=== PATIENT | female | born 1980 | race Caucasian/White ===

== ENCOUNTER 2017-02-18 13:03 | Emergency (ER) | payer OTHER ==
[2017-02-18] MEDS ORDERED: HYDROmorphone HCL INJ 2 MG/ML VIAL IV ONE ×2 (14:14→15:46)
[2017-02-18] MEDS ORDERED: SODIUM CHLORIDE 0.9% 1000ML 1,000 ML IVS ONE (14:14)
[2017-02-18] MEDS ORDERED: ONDANSETRON INJ 4 MG/2 ML VIAL IV ONE (14:14)
[2017-02-18 14:18] VITALS: TEMP 98.5
--- NOTE | 2017-02-18 14:18 | ED.PDOC ---
History of Present Illness - General Chief Complaint: Abdominal Pain Stated Complaint: abdominal pain Time Seen by Provider: 02/18/17 14:05 Information Source: patient, RN notes reviewed, Vital Signs reviewed Exam Limitations: no limitations - History of Present Illness Initial Comments: Patient presents to the ER with LUQ pain. Reports she will periodically have flare ups of pain due to splenomegally. Usually able to control them with home pain medications. This time the medication is not working. + nausea, no vomiting or change in bowel habits. She also has fibromyalgia and is having a lot of pain in her shoulders and R hand. She is followed by an Oncologist in [place] for her splenomegally. This flare up started 2 days ago. Took her pain medication @ 02:30 this morning w/o relief. Abdominal Pain Onset Location: LUQ Pain Radiation: back Quality: severe, aching, dull Timing/Duration: days - 3 Improving Factors: nothing Worsening Factors: nothing Associated Symptoms: back pain, nausea/vomiting Review of Systems - Review of Systems Constitutional: States: no symptoms reported. Denies: chills, fever, malaise Respiratory: States: no symptoms reported Cardiology: States: no symptoms reported Gastrointestinal/Abdominal: States: see HPI, abdominal pain, nausea. Denies: constipation, diarrhea, vomiting Musculoskeletal: States: see HPI, back pain, joint pain, joint swelling, muscle pain, muscle stiffness Skin: States: no symptoms reported Neurological: States: no symptoms reported All other Systems: No Change from Baseline Past Medical History (General) - Patient Medical History Hx Seizures: Yes - Last seizure 1996. Hx Stroke: No Hx Asthma: No Hx of COPD: No Hx Cardiac Disorders: No Hx Congestive Heart Failure: No Hx Hypertension: Yes Hx Diabetes: Yes Hx MRSA: No Family Medical History - Family History Mother Family History: No Known Physical Exam - Physical Exam General Appearance: Alert, No apparent distress, Obese, Well Developed, Well Groomed, Well Hydrated, Well Nourished, Other - uncomfortable Neck: supple Respiratory: chest non-tender, lungs clear, normal breath sounds, no respiratory distress, no accessory muscle use Cardiovascular/Chest: regular rate, rhythm, no gallop, no murmur Gastrointestinal/Abdominal: normal bowel sounds, soft, no pulsatile mass, tenderness - LUQ, spleenomegaly Extremity: normal inspection - except swelling of MCP joint of right hand Neurologic: alert, normal mood/affect, oriented x 3 Skin Exam: other - Flushed Progress - Progress Progress: 02/18/17 15:25 Pain improving after Dilaudid 1mg IV - now sharp, stabbing pains. Appears more comfortable, laying back in bed. Labs are unremarkable. Discussed treatment plan. She would like to get her pain controlled and then follow up with her Oncologist. 02/18/17 16:32 Pain significantly improved after 2nd dose of Dilaudid. Will d/c home and have her follow up w/ her Oncologist. - Results/Orders Results/Orders: Laboratory Tests 02/18/17 02/18/17 14:30 14:30 WBC 7.0 RBC 4.84 Hgb 14.9 Hct 41.9 MCV 86.5 MCH 30.7 MCHC 35.5 RDW 12.6 Plt Count 180 MPV 7.5 Absolute Neuts (auto) 4.60 Absolute Lymphs (auto) 2.00 Absolute Monos (auto) 0.30 Absolute Eos (auto) 0.20 Absolute Basos (auto) 0.00 Neutrophils % 65.6 Lymphocytes % 28.1 Monocytes % 3.6 Eosinophils % 2.2 Basophils % 0.5 Sodium 134 L Potassium 4.4 Chloride 97 L Carbon Dioxide 28 Anion Gap 13.4 BUN 8 Creatinine 0.55 L BUN/Creatinine Ratio 14.5 Random Glucose 329 H Serum Osmolality 279.4 Calcium 9.3 Total Bilirubin 2.0 H AST 18 ALT 26 Alkaline Phosphatase 87 Serum Total Protein 7.2 Albumin 4.2 Globulin 3.0 Albumin/Globulin Ratio 1.4 Amylase 26 L Lipase 27 Departure - Departure Clinical Impression: History of splenomegaly, Abdominal pain, acute, left upper quadrant Time of Disposition: 16:33 Disposition: Discharge to Home or Self Care Condition: Fair Departure Forms: ED Discharge - Pt. Copy, Patient Portal Self Enrollment Instructions: DI for Abdominal Pain-Adult Diet: resume usual diet Activity: increase activity as tolerated Referrals: TAWANNA MONTILLA [Primary Care Provider] - 1-5 Days Home Medications: Ambulatory Orders Gabapentin [Neurontin] 300 mg PO Q6HRS PRN 12/15/13 Human Insulin Aspart [Novolog] 15 unit SUBCU BID 12/15/13 Insulin Detemir [Levemir] 55 unit SUBCU BEDTIME 12/15/13 Metformin HCl 500 mg PO BID 12/15/13 Escitalopram Oxalate [Lexapro] 20 mg PO BEDTIME 05/29/14
[2017-02-18 16:50] VITALS: BP 129/72; O2SAT 95
== END 2017-02-18 16:50 | disposition home or self-care (01) ==
LOC: ER 13:03
DX: R10.12 Left upper quadrant pain (principal); R16.1 Splenomegaly, not elsewhere classified; M79.7 Fibromyalgia; I10 Essential (primary) hypertension; E11.9 Type 2 diabetes mellitus without complications; Z79.899 Other long term (current) drug therapy
CPT/HCPCS: 36415; 80053; 82150; 83690; 85025; J1170; J2405; J7030

== ENCOUNTER → 2017-03-27 | Outpatient (CLI) | payer OTHER ==
--- NOTE | 2017-03-27 21:03 | MRI ---
EXAM DESCRIPTION: Cervical Spine CLINICAL HISTORY: NECK PAIN. COMPARISON: None Available. TECHNIQUE: Multiplanar multisequence MR imaging of the cervical spine including the administration of intravenous contrast. FINDINGS: There is slight reversal of the normal lordotic curvature of the lower cervical spine, with mild multilevel disc desiccation. There is no significant central canal or neuroforaminal stenosis. Vertebral body height is preserved without evidence of acute fracture or subluxation. There is no disc herniation or canal stenosis. Spinal cord is of normal contour and signal. Prevertebral soft tissues are within normal limits. IMPRESSION: No acute abnormalities. Mild degenerative changes. Electronically signed by: Donnie Greene 03/27/2017 9:01 PM [employer]
== END | disposition home or self-care (01) ==
LOC: MRI 14:23
PROVIDERS: ATTEND Surgery
DX: M47.892 Other spondylosis, cervical region (principal)

== ENCOUNTER → 2017-10-08 | Outpatient (CLI) | payer OTHER | LOC: LAB.O 09:25 | PROVIDERS: ATTEND Emergency Medicine | DX: Z01.818 Encounter for other preprocedural examination (principal) ==

== ENCOUNTER 2018-05-01 11:54 | Emergency (ER) | payer OTHER ==
[2018-05-01] MEDS ORDERED: FLUCONAZOLE 100 MG TAB PO ONE (12:19)
--- NOTE | 2018-05-01 12:22 | ED.PDOC ---
History of Present Illness - General Chief Complaint: Skin/Abrasion/Tear Stated Complaint: Vaginal skin irritation/rash Time Seen by Provider: 05/01/18 11:59 Source: patient Exam Limitations: no limitations - History of Present Illness Initial Comments: the patient is a 37-year-old female presenting to the emergency room secondary to a painful lesion at approximately 1:00 at the introitus. She reports that she has been having pain there for one week. She is not sexually active and has not been for a couple of years apparently. She did have a Pap smear not too long ago that was apparently okay. No significant discharge. On examination pain appears to be located at the base of a genital wart at that location. There does not appear to be any diffuse rash. No real significant discharge. No other lesions. There are approximately 3 warts in a cluster. Timing/Duration: week Severity: moderate Location: none Improving Factors: nothing Worsening Factors: nothing Allergies/Adverse Reactions: Allergies NO KNOWN ALLERGY Allergy (Verified 05/01/18 11:59) Home Medications: Ambulatory Orders Gabapentin [Neurontin] 300 mg PO Q6HRS PRN 12/15/13 Human Insulin Aspart [Novolog] 15 unit SUBCU BID 12/15/13 Insulin Detemir [Levemir] 55 unit SUBCU BEDTIME 12/15/13 Metformin HCl 500 mg PO BID 12/15/13 Escitalopram Oxalate [Lexapro] 20 mg PO BEDTIME 05/29/14 Review of Systems - Review of Systems Constitutional: States: no symptoms reported EENTM: States: no symptoms reported Respiratory: States: no symptoms reported Cardiology: States: no symptoms reported Gastrointestinal/Abdominal: States: no symptoms reported Genitourinary: States: see HPI Musculoskeletal: States: no symptoms reported Skin: States: no symptoms reported Neurological: States: no symptoms reported All other Systems: No Change from Baseline Past Medical History (General) - Patient Medical History Hx Seizures: Yes - Last seizure 1996. Hx Stroke: No Hx Asthma: No Hx of COPD: No Hx Cardiac Disorders: No Hx Congestive Heart Failure: No Hx Pacemaker: No Hx Hypertension: Yes Hx Diabetes: Yes - Has neuropathy Hx MRSA: No Surgical History: appendectomy, cholecystectomy, Hysterectomy, other - Vaccination History Hx Influenza Vaccination: No Hx Pneumococcal Vaccination: No - Social History Hx Tobacco Use: No Hx Alcohol Use: No Family Medical History - Family History Mother Family History: No Known Physical Exam - Physical Exam General Appearance: Alert, Comfortable, No apparent distress Eyes, Ears, Nose, Throat Exam: PERRL/EOMI Neck: full range of motion Cardiovascular/Chest: normal peripheral pulses, no edema Respiratory: no accessory muscle use Gastrointestinal/Abdominal: soft - obese Extremity: non-tender, normal inspection, no pedal edema, normal capillary refill 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 She was given 1 dose of Diflucan in case a very mild yeast infection is worsening irritation. She continues very thin layer of Vaseline around the area to prevent moisture from keeping it irritated. Once the inflammation has gone down then she can see her primary care doctor or [employer] doctor to have these removed, to prevent future irritation. ER warnings were given. Departure - Departure Clinical Impression: Warts, genital Disposition: Discharge to Home or Self Care Condition: Fair Departure Forms: ED Discharge - Pt. Copy, Patient Portal Self Enrollment Instructions: Anogenital Warts (DC) Diet: regular diet Activity: increase activity as tolerated Referrals: TAWANNA MONTILLA [Primary Care Provider] - 1-2 Weeks Home Medications: Ambulatory Orders Gabapentin [Neurontin] 300 mg PO Q6HRS PRN 12/15/13 Human Insulin Aspart [Novolog] 15 unit SUBCU BID 12/15/13 Insulin Detemir [Levemir] 55 unit SUBCU BEDTIME 12/15/13 Metformin HCl 500 mg PO BID 12/15/13 Escitalopram Oxalate [Lexapro] 20 mg PO BEDTIME 05/29/14 Additional Instructions: the patient is a 37-year-old female that appears to be having pain due to irritation at the base of one of her genital warts. She was given 1 dose of Diflucan in case a very mild yeast infection is worsening irritation. She continues very thin layer of Vaseline around the area to prevent moisture from keeping it irritated. Once the inflammation has gone down then she can see her primary care doctor or [employer] doctor to have these removed, to prevent future irritation. ER warnings were given.
[2018-05-01 13:35] VITALS: BP 100/79; TEMP 99.7; O2SAT 99
== END 2018-05-01 12:33 | disposition home or self-care (01) ==
LOC: ER 11:54
DX: A63.0 Anogenital (venereal) warts (principal); I10 Essential (primary) hypertension; E11.40 Type 2 diabetes mellitus with diabetic neuropathy, unspecified; Z79.4 Long term (current) use of insulin; Z79.899 Other long term (current) drug therapy

== ENCOUNTER 2020-03-11 04:17 | Emergency (ER) | payer OTHER, SELFPAY ==
[2020-03-11] MEDS ORDERED: KETOROLAC TROMETHAMINE INJ 30 MG/ML VIAL IV ONE (04:52)
[2020-03-11] MEDS ORDERED: ONDANSETRON INJ 4 MG/2 ML VIAL IV ONE (04:53)
--- NOTE | 2020-03-11 04:56 | ED.PDOC ---
History of Present Illness - General Chief Complaint: Abdominal Pain Stated Complaint: my stomach hurts Time Seen by Provider: 03/11/20 04:48 Information Source: patient, RN notes reviewed, Vital Signs reviewed Exam Limitations: no limitations Additional Information: The patient is a 39-year-old female that presents to the emergency department with complaints of left upper quadrant pain. States that she has had some nausea and vomiting. Onset of symptoms was 3 days ago. She denies any diarrhea denies any constipation. States that she has had pancreatitis in the past and she is worried she might have a recurrence because she presented with similar symptoms. - History of Present Illness Abdominal Pain Onset Location: LUQ Pain Radiation: no radiation Quality: moderate Timing/Duration: days - 3 Improving Factors: nothing Worsening Factors: nothing Associated Symptoms: nausea/vomiting Review of Systems - Review of Systems Constitutional: States: see HPI. Denies: chills, fever EENTM: Denies: blurred vision, tearing, ear pain, ear discharge, nose pain Respiratory: Denies: cough, orthopnea, stridor Cardiology: Denies: chest pain, palpitations, syncope Gastrointestinal/Abdominal: States: abdominal pain, nausea, vomiting. Denies: constipation, diarrhea Musculoskeletal: Denies: joint pain, joint swelling, muscle pain, muscle stiffness Skin: Denies: change in color, dryness, lesions, rash, other Neurological: Denies: depressed, emotional problems, headache, numbness, paresthesia, pre-existing deficit, seizure, tremors Endocrine: Denies: flushing, intolerance to cold, intolerance to heat Hematologic/Lymphatic: Denies: blood clots, easy bleeding All other Systems: Reviewed and Negative Past Medical History (General) - Patient Medical History Hx Seizures: Yes - Last seizure 1996. Hx Stroke: No Hx Asthma: No Hx of COPD: No Hx Cardiac Disorders: No Hx Congestive Heart Failure: No Hx Pacemaker: No Hx Hypertension: Yes Hx Diabetes: Yes - Has neuropathy Hx MRSA: No - Vaccination History Hx Tetanus, Diphtheria Vaccination: No Hx Influenza Vaccination: No Hx Pneumococcal Vaccination: No Immunizations Up to Date: No - Social History Hx Tobacco Use: No Hx Alcohol Use: No Hx Substance Use: No Hx Substance Use Treatment: No Hx Depression: No Family Medical History - Family History Mother Family History: No Known Physical Exam - Physical Exam General Appearance: Alert, Comfortable Eyes, Ears, Nose, Throat Exam: normal ENT inspection, TMs normal, pharynx normal, other - dry mucous membranes Neck: non-tender, full range of motion, supple Respiratory: chest non-tender, lungs clear, normal breath sounds, no respiratory distress, no accessory muscle use Cardiovascular/Chest: normal peripheral pulses, regular rate, rhythm, no edema, no gallop, no JVD Peripheral Pulses: No deficit Gastrointestinal/Abdominal: soft, no organomegaly, tenderness - luq , no guarding Back Exam: normal inspection, no CVA tenderness, no vertebral tenderness Extremity: normal range of motion, non-tender, normal inspection Neurologic: no motor/sensory deficits, alert, oriented x 3 Skin Exam: normal color, warm/dry Lymphatic: no adenopathy Progress - Progress Progress: 03/11/20 05:30 Patient is a 39-year-old female presents emergency department complaints of left upper quadrant pain. On examination she has left upper quadrant pain. The patient is concerned that she might have pancreatitis especially to the ER lipase . Physical shows dehydration. She is treated with IV fluids Zofran and Toradol in the emergency department she continues to complain of pain to milligrams of morphine administered she reports improvement in his symptoms. That she came to the ER who patient get a CT scan, i explained to the patient that the CT scan is down and I am okay with transferring her to an outside facility, Closest one [place] for her to get a CT done. The patient states that she prefers to be discharged home that she will follow-up with her primary care physician tomorrow or return to our facility later on today for in the CT is improving functionally.She reports significant improvement in her symptoms after morphine 03/11/20 05:38 Departure - Departure Clinical Impression: Dehydration, Abdominal pain, LUQ abdominal pain, UTI (urinary tract infection) Clinical Impression: (Ruled Out): KENIA (acute kidney injury) Disposition: Discharge to Home or Self Care Condition: Fair Departure Forms: ED Discharge - Pt. Copy, Patient Portal Self Enrollment Instructions: DI for Abdominal Pain-Adult, Dehydration, Adult (DC), Acute Abdomen (Belly Pain), Adult (DC) Referrals: TAWANNA MONTILLA [Primary Care Provider] - 1-2 Weeks Home Medications: Ambulatory Orders Gabapentin [Neurontin] 300 mg PO Q6HRS PRN 12/15/13 Human Insulin Aspart [Novolog] 0 unit SUBCU QID PRN 12/15/13 Insulin Detemir [Levemir] 55 unit SUBCU BEDTIME 12/15/13 Metformin HCl [Metformin Hydrochloride] 500 mg PO BID 12/15/13 Cyclobenzaprine HCl [Flexeril] 10 mg PO BEDTIME 05/01/18 Oxycodone HCl 10 mg PO Q8H PRN 05/01/18 Additional Instructions: -Please ensure to follow-up with her primary care physician within 24 hours. -Assisted preference in the emergency department today To be sent home and bit sent outside facility for imaging, return to emergency department immediately symptoms worsen or recur.
[2020-03-11] MEDS ORDERED: SODIUM CHLORIDE 0.9% 1000ML 1,000 ML IVS ONE (05:20)
[2020-03-11] MEDS ORDERED: cefTRIAXone SODIUM 1 GM in SODIUM CHL 0.9% 50ML MIN-BAG+ 50 ML IVPB ONE (05:24)
[2020-03-11] MEDS ORDERED: HYDROCOD/APAP 5/325 (ER DISP) #3 TAB PO ONE (05:25)
[2020-03-11] MEDS ORDERED: MORPHINE SULFATE INJ 10 MG/ML VIAL IV ONE (05:29)
[2020-03-11 06:15] VITALS: BP 128/79; TEMP 97.5; O2SAT 98
== END 2020-03-11 06:13 | disposition home or self-care (01) ==
LOC: ER 04:17
DX: N39.0 Urinary tract infection, site not specified (principal); E86.0 Dehydration; R10.12 Left upper quadrant pain; R11.2 Nausea with vomiting, unspecified; I10 Essential (primary) hypertension; E11.40 Type 2 diabetes mellitus with diabetic neuropathy, unspecified; Z79.4 Long term (current) use of insulin; Z79.899 Other long term (current) drug therapy
CPT/HCPCS: 36415; 80053; 81001; 82150; 83690; 85025; J0696; J1885; J2270; J2405; J7030; J7050

== ENCOUNTER 2020-05-13 16:58 | Emergency (ER) | payer SELFPAY ==
[2020-05-13] MEDS ORDERED: HYDROcodone 10MG/APAP 325MG 1 EA TAB PO ONE (17:29)
[2020-05-13] MEDS ORDERED: LIDOCAINE 1% 10 ML VIAL INJ ONE (17:31)
[2020-05-13] MEDS ORDERED: LIDOCAINE 1% 50 ML VIAL INJ ONE (17:31)
--- NOTE | 2020-05-13 17:54 | ED.PDOC ---
History of Present Illness - General Chief Complaint: Lower Extremity Injury Stated Complaint: right knee pain Time Seen by Provider: 05/13/20 17:29 Additional Information: Patient presents with 2-day history of right knee swelling with associated pain. Patient is unaware of any injury or strain to the knee. She woke 2 days ago with the swelling and it has persisted. Patient denies fever, chills, nausea, vomiting. Patient's had similar symptoms in the past that resolved with aspiration. She denies history of gout. Patient is otherwise asymptomatic. - History of Present Illness Allergies/Adverse Reactions: Allergies NO KNOWN ALLERGY Allergy (Verified 05/01/18 11:59) Home Medications: Ambulatory Orders Gabapentin [Neurontin] 300 mg PO Q6HRS PRN 12/15/13 Human Insulin Aspart [Novolog] 0 unit SUBCU QID PRN 12/15/13 Insulin Detemir [Levemir] 55 unit SUBCU BEDTIME 12/15/13 Metformin HCl [Metformin Hydrochloride] 500 mg PO BID 12/15/13 Cyclobenzaprine HCl [Flexeril] 10 mg PO BEDTIME 05/01/18 Oxycodone HCl 10 mg PO Q8H PRN 05/01/18 Acetaminophen W/ Codeine [Tylenol W/ CODEINE #3] 1 ea PO Q6H PRN #20 05/13/20 Ibuprofen 800 mg PO Q8H PRN #20 tab 05/13/20 Review of Systems - Review of Systems Constitutional: States: no symptoms reported. Denies: chills, fever EENTM: States: no symptoms reported Respiratory: States: no symptoms reported. Denies: cough, short of breath Cardiology: States: no symptoms reported. Denies: chest pain, palpitations Gastrointestinal/Abdominal: States: no symptoms reported. Denies: abdominal pain, nausea, vomiting Skin: States: no symptoms reported. Denies: rash All other Systems: Reviewed and Negative Past Medical History (General) - Patient Medical History Hx Seizures: Yes - Last seizure 1996. Hx Stroke: No Hx Asthma: No Hx of COPD: No Hx Cardiac Disorders: No Hx Congestive Heart Failure: No Hx Pacemaker: No Hx Hypertension: Yes Hx Diabetes: Yes - Has neuropathy Hx MRSA: No - Vaccination History Hx Tetanus, Diphtheria Vaccination: No Hx Influenza Vaccination: No Hx Pneumococcal Vaccination: No - Social History Hx Tobacco Use: No Hx Alcohol Use: No Hx Substance Use: No Hx Substance Use Treatment: No Hx Depression: No Family Medical History - Family History Mother Family History: No Known Physical Exam - Physical Exam General Appearance: Alert, Comfortable, No apparent distress, Well Developed, Well Nourished Cardiovascular/Respiratory: regular rate, rhythm, no M/R/G, normal peripheral pulses, no JVD, normal breath sounds, no respiratory distress Leg: normal inspection, non-tender Knee: other - Left knee normal inspection and normal exam. Right knee with mo derate effusion. There is no erythema or calor. Patient with limited range of motion knee due to the edema. 2+ DP pulse. Ankle: normal inspection, non-tender Foot: normal inspection, non-tender Mental Status: alert, oriented x 3 Skin: normal color, warm/dry Progress - Progress Progress: 05/13/20 17:54 Differential diagnosis includes but is not limited to fracture sprain gout septic knee 05/13/20 20:32 I am now told that patient's synovial fluid testing will not result today, it is a send out. I discussed with patient that she will be called tomorrow on the number she gave us during registration if there is any significant abnormalities to her synovial fluid analysis. Patient has no clinical findings concerning for septic knee, there is no erythema or warmth to the site and patient now has good range of motion following a considerable amount of fluid removal. Patient is slightly tachycardic but I suspect this is from anxiety and not certainly not from sepsis. Will DC with analgesics and patient to follow-up with her PCP in 1 to 2 days, Dr. Navarro, who will be able to access all of patient's records from today. Vital signs stable, patient is NAD and looks clinically well and I believe is safe for discharge with outpatient follow-up. Follow-up instructions, discharge instructions and return to ED precautions discussed with patient. Patient voices understanding and willingness to comply with instructi ons. All laboratory and/or radiographic results have been discussed with the patient, and all questions answered. Patient is happy with plan. 05/13/20 20:37 Note: Narcotic E prescription feature of EMR is an operative and patient will require hardcopy prescription of Tylenol 3. Procedures - Incision and Drainage #1 Procedure and Prep: betadine prep, sterile drapes applied Procedure Comments: Procedure: Right knee arthrocentesis: Medial approach used. Site prepped and draped in the normal usual sterile fashion. Topical lidocaine 1% 3 mL used for local anesthesia. 40 mL of slightly blood-tinged yellow joint fluid aspirated. Patient tolerated procedure well Band-Aid placed. Departure - Departure Clinical Impression: Knee effusion, right Time of Disposition: 20:39 Disposition: Discharge to Home or Self Care Condition: Fair Departure Forms: ED Discharge - Pt. Copy, Patient Portal Self Enrollment Instructions: DI for Leg Pain, Swollen Joints (DC) Referrals: TAWANNA NAVARRO [Primary Care Provider] - 1-2 Days Prescriptions: Ibuprofen 800 mg PO Q8H PRN #20 tab PRN Reason: Pain Acetaminophen W/ Codeine [Tylenol W/ CODEINE #3] 1 ea PO Q6H PRN #20 PRN Reason: Pain Home Medications: Ambulatory Orders Gabapentin [Neurontin] 300 mg PO Q6HRS PRN 12/15/13 Human Insulin Aspart [Novolog] 0 unit SUBCU QID PRN 12/15/13 Insulin Detemir [Levemir] 55 unit SUBCU BEDTIME 12/15/13 Metformin HCl [Metformin Hydrochloride] 500 mg PO BID 12/15/13 Cyclobenzaprine HCl [Flexeril] 10 mg PO BEDTIME 05/01/18 Oxycodone HCl 10 mg PO Q8H PRN 05/01/18 Acetaminophen W/ Codeine [Tylenol W/ CODEINE #3] 1 ea PO Q6H PRN #20 05/13/20 Ibuprofen 800 mg PO Q8H PRN #20 tab 05/13/20
--- NOTE | 2020-05-13 18:36 | RAD ---
EXAM: Knee,Right 1 or 2 Views CLINICAL INDICATION: Right knee pain COMPARISON: There is no previous study for comparison. FINDINGS: Three views of the right knee reveal no evidence of fracture. There is a small knee joint effusion. No significant degenerative joint disease is identified. The osseous structures are intact and unremarkable. IMPRESSION: Small knee joint effusion. Otherwise negative right knee radiographs. Electronically signed by: Nathaniel Owusu MD 05/13/2020 6:34 PM [facility]
[2020-05-13] MEDS ORDERED: KETOROLAC TROMETHAMINE INJ 60 MG/2 ML VIAL IM ONE (20:20)
[2020-05-13 20:44] VITALS: BP 141/92; TEMP 97.9; O2SAT 97
== END 2020-05-13 20:49 | disposition home or self-care (01) ==
LOC: ER 16:58
DX: M25.461 Effusion, right knee (principal); E11.42 Type 2 diabetes mellitus with diabetic polyneuropathy; I10 Essential (primary) hypertension; R56.9 Unspecified convulsions; Z79.4 Long term (current) use of insulin; Z79.899 Other long term (current) drug therapy
CPT/HCPCS: 73560; 87070; 87205; 89060; J1885

== ENCOUNTER 2020-06-28 15:50 | Emergency (ER) | payer SELFPAY ==
[2020-06-28] MEDS ORDERED: MORPHINE SULFATE INJ 10 MG/ML VIAL IM ONE (16:06)
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
--- NOTE | 2020-06-28 16:40 | RAD ---
EXAM: XR Left Ribs, 2 Views CLINICAL HISTORY: fall on ice TECHNIQUE: Frontal and oblique views of the left ribs. COMPARISON: No relevant prior studies available. FINDINGS: Lungs: Visualized portions appear normal. No consolidation. Pleural space: No abnormality noted. No pneumothorax. Bones/joints: No abnormality noted. No acute fracture. IMPRESSION: No abnormality noted. Electronically signed by: Brianne Real MD 06/28/2020 4:39 PM [facility]
[2020-06-28] MEDS ORDERED: KETOROLAC TROMETHAMINE INJ 30 MG/ML VIAL IM ONE (16:45)
[2020-06-28 17:18] VITALS: BP 136/78; TEMP 97.8; O2SAT 99
== END 2020-06-28 17:18 | disposition home or self-care (01) ==
LOC: ER 15:50
DX: S20.212A Contusion of left front wall of thorax, initial encounter (principal); E11.40 Type 2 diabetes mellitus with diabetic neuropathy, unspecified; I10 Essential (primary) hypertension; W00.0XXA Fall on same level due to ice and snow, initial encounter; Z79.4 Long term (current) use of insulin; Z79.899 Other long term (current) drug therapy; Y93.89 Activity, other specified; Y92.9 Unspecified place or not applicable
CPT/HCPCS: 71101; J1885; J2270